=== PATIENT | male | born 1955 | race Caucasian/White ===

== ENCOUNTER 2023-07-06 09:15 | Day surgery (SDC) | payer OTHER ==
[~2023-07-06] VITALS: Ht 175.3 cm; Wt 103.4 kg
[~2023-07-06 09:15] MED LIST: FENO160 PO; HYDR.5TC TOP; HYDR1TAB94 PO; IBUP400 PO; METF500C PO; ONDA4ODT PO; PSORIASIN21.25 GM TOP; ROLAIDS PO
[2023-07-06] MEDS ORDERED: ASPI81CH (09:45)
[2023-07-06] MEDS ORDERED: Crestor40 MG (10:00)
[2023-07-06] MEDS ORDERED: TRIJARDY XR 101 EAC1 (10:00)
[2023-07-06] MEDS ORDERED: ZINC7.5 MG (10:01)
[2023-07-06] MEDS ORDERED: LISI20 (10:01)
[2023-07-06] MEDS ORDERED: MULTIPLE VITAM1 EACH (10:01)
--- NOTE | 2023-07-06 10:45 | NUR ---
07/06/23 1045 KRANTHI MCDUFFIE rn heard abnormal heart sounds;REQUESTED DR MCKEON TO GIVE SECOND OPIONION-SYSTOLIC HEART MURMUR HEARD. DR MCKEON RECOMMEDING PT F/U W/ PCP AND ORDER AN ECHO
[2023-07-06 11:49] VITALS: BP 112/78
== END 2023-07-06 11:51 | disposition home or self-care (01) ==
LOC: ORSCSDS 09:15
PROVIDERS: Surgery
PROC: 0DJD8ZZ Inspection of Lower Intestinal Tract, Via Natural or Artificial Opening Endoscopic (ICD-10-PCS; principal; 2023-07-06 10:30)
DX: Z12.11 Encounter for screening for malignant neoplasm of colon (principal); K57.30 Diverticulosis of large intestine without perforation or abscess without bleeding; I10 Essential (primary) hypertension; R73.03 Prediabetes; F17.210 Nicotine dependence, cigarettes, uncomplicated; Z79.899 Other long term (current) drug therapy
CPT/HCPCS: 82947; J2704; J7120